=== PATIENT | female | born 1955 | race Caucasian/White ===

== ENCOUNTER → 2023-10-23 09:57 | Outpatient (REF) | payer OTHER, SELFPAY | LOC: HWRAD 09:57 | PROVIDERS: ATTENDING PHYSICIAN Internal Medicine | DX: E04.9 Nontoxic goiter, unspecified (principal) | CPT/HCPCS: 76536 ==

== ENCOUNTER → 2023-11-13 08:36 | Outpatient (REF) | payer OTHER, SELFPAY | LOC: HWRAD 08:36 | PROVIDERS: ATTENDING PHYSICIAN Internal Medicine | DX: M81.0 Age-related osteoporosis without current pathological fracture (principal) | CPT/HCPCS: 77080 ==

== ENCOUNTER 2023-11-27 11:18 | Outpatient (RCR) | payer OTHER, SELFPAY | END 2023-11-27 23:59 | disposition home or self-care (01) | LOC: RPT 11:18 | PROVIDERS: ATTENDING PHYSICIAN Internal Medicine | DX: R32 Unspecified urinary incontinence (principal); M62.89 Other specified disorders of muscle; R10.2 Pelvic and perineal pain; Z73.6 Limitation of activities due to disability | CPT/HCPCS: 97110; 97140; 97163; 97530 ==

== ENCOUNTER 2023-12-30 08:08 | Outpatient (RCR) | payer OTHER, SELFPAY | END 2023-12-30 23:59 | disposition home or self-care (01) | LOC: RPT 08:08 | PROVIDERS: ATTENDING PHYSICIAN Internal Medicine | DX: R32 Unspecified urinary incontinence (principal); M62.89 Other specified disorders of muscle; R10.2 Pelvic and perineal pain; Z73.6 Limitation of activities due to disability | CPT/HCPCS: 97112; 97530 ==

== ENCOUNTER 2024-02-06 08:14 | Outpatient (RCR) | payer OTHER, SELFPAY | END 2024-02-06 23:59 | disposition home or self-care (01) | LOC: RPT 08:14 | PROVIDERS: ATTENDING PHYSICIAN Internal Medicine | DX: R32 Unspecified urinary incontinence (principal); M62.89 Other specified disorders of muscle; R10.2 Pelvic and perineal pain; Z73.6 Limitation of activities due to disability | CPT/HCPCS: 97110; 97140; 97530 ==

== ENCOUNTER 2024-02-27 06:12 | Outpatient (RCR) | payer OTHER, SELFPAY | END 2024-02-27 23:59 | disposition home or self-care (01) | LOC: RPT 06:12 | PROVIDERS: ATTENDING PHYSICIAN Internal Medicine | DX: R32 Unspecified urinary incontinence (principal); M62.89 Other specified disorders of muscle; R10.2 Pelvic and perineal pain; Z73.6 Limitation of activities due to disability | CPT/HCPCS: 97110; 97140; 97530 ==

== ENCOUNTER 2024-03-12 08:07 | Outpatient (RCR) | payer OTHER, SELFPAY | END 2024-03-12 23:59 | disposition home or self-care (01) | LOC: RPT 08:07 | PROVIDERS: ATTENDING PHYSICIAN Internal Medicine | DX: R32 Unspecified urinary incontinence (principal); M62.89 Other specified disorders of muscle; R10.2 Pelvic and perineal pain; Z73.6 Limitation of activities due to disability | CPT/HCPCS: 97110; 97530 ==

== ENCOUNTER → 2024-06-17 09:10 | Outpatient (REF) | payer OTHER, SELFPAY | LOC: WDC 09:10 | PROVIDERS: ATTENDING PHYSICIAN Family Medicine | DX: Z12.31 Encounter for screening mammogram for malignant neoplasm of breast (principal) | CPT/HCPCS: 77063; 77067 ==

== ENCOUNTER 2024-12-01 17:04 | Outpatient (RCR) | payer MEDICARE, BC, SELFPAY | END 2024-12-01 23:59 | disposition home or self-care (01) | LOC: RPT 17:04 | PROVIDERS: ATTENDING PHYSICIAN Nurse Practitioner Adult Health; FAMILY PHYSICIAN Family Medicine | DX: C18.1 Malignant neoplasm of appendix (principal); C78.6 Secondary malignant neoplasm of retroperitoneum and peritoneum; R53.0 Neoplastic (malignant) related fatigue; M62.81 Muscle weakness (generalized); Z73.6 Limitation of activities due to disability | CPT/HCPCS: 97110; 97112; 97140; 97163; 97530 ==

== ENCOUNTER 2025-01-03 15:14 | Outpatient (RCR) | payer MEDICARE, BC, SELFPAY | END 2025-01-03 23:59 | disposition home or self-care (01) | LOC: RPT 15:14 | PROVIDERS: ATTENDING PHYSICIAN Nurse Practitioner Adult Health; FAMILY PHYSICIAN Family Medicine | DX: C18.1 Malignant neoplasm of appendix (principal); C78.6 Secondary malignant neoplasm of retroperitoneum and peritoneum; R53.0 Neoplastic (malignant) related fatigue; M62.81 Muscle weakness (generalized); Z73.6 Limitation of activities due to disability | CPT/HCPCS: 97110; 97112; 97530 ==

== ENCOUNTER 2025-02-01 16:20 | Outpatient (RCR) | payer MEDICARE, BC, SELFPAY | END 2025-02-01 23:59 | disposition home or self-care (01) | LOC: RPT 16:20 | PROVIDERS: ATTENDING PHYSICIAN Nurse Practitioner Adult Health; FAMILY PHYSICIAN Family Medicine | DX: C18.1 Malignant neoplasm of appendix (principal); C78.6 Secondary malignant neoplasm of retroperitoneum and peritoneum; R53.0 Neoplastic (malignant) related fatigue; M62.81 Muscle weakness (generalized); Z73.6 Limitation of activities due to disability; R26.2 Difficulty in walking, not elsewhere classified | CPT/HCPCS: 97110; 97112; 97530 ==

== ENCOUNTER 2025-03-01 16:07 | Outpatient (RCR) | payer MEDICARE, BC, SELFPAY | END 2025-03-01 23:59 | disposition home or self-care (01) | LOC: RPT 16:07 | PROVIDERS: ATTENDING PHYSICIAN Nurse Practitioner Adult Health; FAMILY PHYSICIAN Family Medicine | DX: C18.1 Malignant neoplasm of appendix (principal); C78.6 Secondary malignant neoplasm of retroperitoneum and peritoneum; R53.0 Neoplastic (malignant) related fatigue; M62.81 Muscle weakness (generalized); Z73.6 Limitation of activities due to disability; R26.2 Difficulty in walking, not elsewhere classified | CPT/HCPCS: 97110; 97112; 97530 ==

== ENCOUNTER 2025-04-05 08:35 | Outpatient (RCR) | payer MEDICARE, BC, SELFPAY | END 2025-04-05 23:59 | disposition home or self-care (01) | LOC: RPT 08:35 | PROVIDERS: ATTENDING PHYSICIAN Nurse Practitioner Adult Health; FAMILY PHYSICIAN Family Medicine | DX: C18.1 Malignant neoplasm of appendix (principal); M62.81 Muscle weakness (generalized); Z73.6 Limitation of activities due to disability; C78.6 Secondary malignant neoplasm of retroperitoneum and peritoneum; R53.0 Neoplastic (malignant) related fatigue; R26.2 Difficulty in walking, not elsewhere classified | CPT/HCPCS: 97110; 97112; 97530 ==

== ENCOUNTER 2025-04-19 12:21 | Outpatient (RCR) | payer MEDICARE, BC, SELFPAY | END 2025-05-06 12:04 | disposition home or self-care (01) | LOC: RPT 12:21 | PROVIDERS: ATTENDING PHYSICIAN Nurse Practitioner Adult Health; FAMILY PHYSICIAN Family Medicine | DX: C18.1 Malignant neoplasm of appendix (principal); M62.81 Muscle weakness (generalized); Z73.6 Limitation of activities due to disability; C78.6 Secondary malignant neoplasm of retroperitoneum and peritoneum; R53.0 Neoplastic (malignant) related fatigue; R26.2 Difficulty in walking, not elsewhere classified | CPT/HCPCS: 97110; 97530 ==

== ENCOUNTER 2025-06-06 11:45 | Outpatient (RCR) | payer MEDICARE, BC, SELFPAY | END 2025-06-06 23:59 | disposition home or self-care (01) | LOC: RPT 11:45 | PROVIDERS: ATTENDING PHYSICIAN Nurse Practitioner Adult Health; FAMILY PHYSICIAN Family Medicine | DX: C18.1 Malignant neoplasm of appendix (principal); M62.81 Muscle weakness (generalized); Z73.6 Limitation of activities due to disability; C78.6 Secondary malignant neoplasm of retroperitoneum and peritoneum; R53.0 Neoplastic (malignant) related fatigue; R26.2 Difficulty in walking, not elsewhere classified | CPT/HCPCS: 97110; 97112; 97530 ==